=== PATIENT | female | born 1980 | race Caucasian/White ===

== ENCOUNTER 2023-12-12 22:29 | Emergency (ER) | payer SELFPAY ==
[~2023-12-12] VITALS: Ht 162.6 cm; Wt 100.0 kg
[2023-12-12 22:36] VITALS: TEMP 98.5; O2SAT 100
[2023-12-12 23:16] LABS: HEMOGLOBIN 11.5 g/dL (12.0-16.0); MEAN CORPUSCULAR HEMOGLOBIN 25.9 pg (28.0-32.0); MEAN CORPUSCULAR HGB CONC 32.1 g/dL (31.0-37.0); MEAN CORPUSCULAR VOLUME 80.9 fL (81.0-99.0); PLATELET 227 x1000/uL (130-400); RED BLOOD CELL COUNT 4.45 mill/uL (4.2-5.4); RED CELL DISTRIBUTION WIDTH 14.2 % (11.6-14.6); WHITE BLOOD COUNT 8.7 x1000/uL (4.5-11.0)
[2023-12-12 23:25] LABS: CARBON DIOXIDE 26 mEq/L (21-32); CHLORIDE 105 mEq/L (98-107); POTASSIUM 3.2 mEq/L (3.5-5.1); SODIUM 138 mEq/L (136-145)
[2023-12-12 23:26] LABS: CALCIUM 9.2 mg/dL (8.7-10.4)
[2023-12-12 23:31] LABS: CREATININE 0.8 mg/dL (0.6-1.0); GLUCOSE 101 mg/dL (70-105); TROPONIN I HIGH SENSITIVITY 13 ng/L (3.0-34); UREA NITROGEN BLOOD 12 mg/dL (9-23)
[2023-12-12 23:32] LABS: ALANINE AMINOTRANSFERASE 86 IU/L (10-49); ALBUMIN 4.6 g/dL (3.2-4.8); ASPARTATE AMINOTRANSFERASE 58 IU/L (<34)
[2023-12-12 23:33] LABS: BILIRUBIN TOTAL 0.3 mg/dL (0.1-1.0); PROTEIN TOTAL 7.3 g/dL (6.0-8.3)
[2023-12-13 04:06] LABS: TROPONIN I HIGH SENSITIVITY 13 ng/L (3.0-34)
[2023-12-13 04:18] VITALS: BP 115/71; PULSE 85; RESP 20; O2SAT 98
== END 2023-12-13 04:18 | disposition home or self-care (01) ==
LOC: ER 22:29
DX: R00.2 Palpitations (principal); Z98.890 Other specified postprocedural states
CPT/HCPCS: 36415; 71045; 80053; 84484; 85027; 99284